=== PATIENT | female | born 1940 | race Caucasian/White ===

== ENCOUNTER 2020-01-11 16:39 | Emergency (ER) | payer OTHER, BC ==
[2020-01-11] MEDS ORDERED: diphenhydrAMINE HCL 25 MG CAPSULE (FP) PO ONE ×2 (16:43→17:00)
[2020-01-11] MEDS ORDERED: FAMOTIDINE 10 MG TABLET PO ONE (16:43)
[2020-01-11] MEDS ORDERED: predniSONE 20 MG TABLET (UD) PO ONE (16:43)
--- NOTE | 2020-01-11 16:45 | PDOC ---
Rapid Medical Evaluation Chief Complaint: Bite Time Seen by Provider: 01/11/20 16:41 Medical Evaluation: 01/11/20 16:44 I performed a brief in-person evaluation of this patient. Pt is an 79 y/o female who got stung by a "black bee" a few hours ago. She admits to to L hand swelling after being stung on the L MF. She denies taking anything for her symptoms. Pertinent physical exam findings: L hand swelling, FROM of all fingers, radial pulse palpable I have ordered the following: benadryl, pepcid, prednisone ordered Patient to proceed to ED for further evaluation. Discharge Disposition - Diagnosis Bee sting - Referrals - Patient Instructions - Post Discharge Activity
[2020-01-11 16:47] VITALS: BP 125/65; PULSE 78; TEMP 98; BMI 26.4
[2020-01-11] MEDS ORDERED: predniSONE 20 MG TABLET (UD) ONE (17:00)
[2020-01-11] MEDS ORDERED: FAMOTIDINE 20 MG TABLET ONE (17:00)
--- NOTE | 2020-01-11 17:06 | PDOC ---
History of Present Illness - General Chief Complaint: Bite Stated Complaint: LT HAND BUG BITE Time Seen by Provider: 01/11/20 16:41 History Source: Patient Exam Limitations: No Limitations - History of Present Illness Initial Comments: 01/11/20 17:01 79-year-old female presents to ED status post staying from a "black bee" which she states attempted to keep her attached and sting her again on her left third digit. Patient denies history of allergies to bee stings since she has been stung before. Patient denies any itching to her throat, difficulty breathing, or racing heart. Is this a multiple visit Asthma Patient?: No Timing/Duration: 1 hour Severity: mild Associated Symptoms: reports: denies symptoms Past History - Travel History Traveled outside of the country in the last 30 days: No Close contact w/someone who was outside of country & ill: No (Making this) - Medical History Allergies/Adverse Reactions: Allergies Allergy/AdvReac Type Severity Reaction Status Date / Time No Known Allergies Allergy Verified 01/11/20 16:47 COPD: No HTN: Yes Hypercholesterolemia: Yes Thyroid Disease: Yes Other medical history: glaucoma, ostioarthritis - Psycho-Social/Smoking History Patient Lives Alone: Yes Lives with/in: lives alone Smoking History: Never smoked - Substance Abuse Hx (Audit-C & DAST Scrn) How often the patient has a drink containing alcohol: Never Score: In Men: 4 or > Positive; In Women: 3 or > Positive: 0 Screen Result (Pos requires Nsg. Audit-10AR): Negative Review of Systems - Review of Systems Able to Perform ROS?: Yes Constitutional: No: Symptoms Reported HEENTM: No: Symptoms Reported Respiratory: No: Symptoms reported Cardiac (ROS): No: Symptoms Reported ABD/GI: No: Symptoms Reported : No: Symptoms Reported Musculoskeletal: No: Symptoms Reported Integumentary: Yes: Erythema, Lumps, Pruritus Neurological: No: Symptoms reported Hematologic/Lymphatic: No: Symptoms Reported *Physical Exam - Vital Signs Last Vital Signs Temp Pulse Resp BP Pulse Ox 98 F 78 18 125/65 98 01/11/20 16:43 01/11/20 16:43 01/11/20 16:43 01/11/20 16:43 01/11/20 16:43 - Physical Exam General Appearance: Yes: Nourished, Appropriately Dressed. No: Apparent Distress HEENT: positive: Pharynx Normal Respiratory/Chest: positive: Lungs Clear, Normal Breath Sounds. negative: Respiratory Distress, Accessory Muscle Use, Stridor, Wheezing Cardiovascular: positive: Regular Rhythm, Regular Rate. negative: Murmur Extremity: positive: Normal Capillary Refill, Normal Range of Motion, Tender (Over dorsal aspect of left hand). negative: Normal Inspection (Noted erythema and edema over the left third digit extending to distal aspect of her metacarpal 2 through 4) Integumentary: positive: Warm, Swelling Neurologic: positive: Motor Strength 5/5 (Ambulatory) Medical Decision Making - Medical Decision Making 01/11/20 17:05 Chief complaint: Patient stung by "black tea which would not let go and continue to sting her. Patient denies history of allergies to bee stings since she has been stung in the past. Patient has no other complaint except for localized itching and pain to the left hand. Exam: Patient with localized edema erythema extending from the left third digit to the dorsal aspect of left hand. Plan: Patient received prednisone Benadryl and Pepcid here in the ER and discharged home with the same. Discharge - Discharge Information Problems reviewed: Yes Clinical Impression/Diagnosis: Bee sting Condition: Improved Disposition: HOME - Follow up/Referral - Patient Discharge Instructions Patient Printed Discharge Instructions: How to Care for an Insect Bite or Sting Additional Instructions: Apply ice to affected area to alleviate itching and swelling. Take prednisone starting tomorrow for the next 2 days daily. May take Benadryl 25 mg if needed for itching - Post Discharge Activity
== END 2020-01-11 17:15 | disposition home or self-care (01) ==
LOC: JERFT 16:39
DX: S60.562A Insect bite (nonvenomous) of left hand, initial encounter (principal)
CPT/HCPCS: 99284-25